=== PATIENT | male | born 1985 | race Asian ===

== ENCOUNTER 2018-10-29 02:59 | Inpatient (IN) | payer BC, OTHER ==
[~2018-10-29] VITALS: Ht 177.8 cm; Wt 78.0 kg
[2018-10-29] VITALS (17 sets, daily range): BP systolic 102–130; BP diastolic 52–80; PULSE 63–98; RESP 12–33; Ht 177.8 cm; Wt 78.0 kg
--- NOTE | 2018-10-29 04:56 | ERD ---
ER Documentation Chief Complaint Chief Complaint right lower abdominal pain x 3 hours HPI 33-year-old male, previously healthy, presents the emergency department, complaining of acute onset of epigastric pain approximately 20 hours prior to arrival. The pain is reported as dull, constant, 8/10 that during the last 5 hours has radiated to the right lower quadrant, associated with chills and nausea but no vomiting, no fever, no diarrhea or constipation. The patient took Tums for pain without improvement of the symptoms. Last p.o. >15h. No history of abdominal surgeries. ROS All systems reviewed and are negative except as per history of present illness. Allergies Allergies: Coded Allergies: No Known Drug Allergies (Verified Allergy, Unknown, 10/29/18) PMhx/Soc Medical and Surgical Hx: pt denies Medical Hx, pt denies Surgical Hx Hx Alcohol Use: No Hx Substance Use: No Hx Tobacco Use: No Smoking Status: Never smoker FmHx Family History: No diabetes, No coronary disease Physical Exam Vitals Vital Signs Date Temp Pulse Resp B/P (MAP) Pulse Ox O2 O2 Flow FiO2 Time Delivery Rate 10/29/18 98.2 85 18 141/89 99 03:11 (106) Physical Exam Patient alert, oriented, moderate distress due to pain. HEENT: Normocephalic, atraumatic. EYES: PERRLA, EOMI, Sclera and conjunctiva appear normal. EARS: Canals clear, tympanic membranes WNL. THROAT: Normal oropharynx. NECK: Supple, No lymphadenopathy. Full ROM without pain or tenderness. HEART: RRR, no rubs, murmurs, clicks or gallops. LUNGS: Clear to auscultation. ABDOMEN: Guarded, tender to palpation in the right lower quadrant, (+)McBurney sign. EXTREMITIES: No edema bilaterally. BACK: Full ROM, no deformity, normal back exam NEURO: Cranial nerves grossly intact, no motor or sensory deficit Result Diagram: 10/29/18 0508 10/29/18 0508 Results 24 hrs Laboratory Tests Test 10/29/18 05:08 10/29/18 05:09 White Blood Count 12.5 10^3/ul Red Blood Count 5.19 10^6/ul Hemoglobin 15.1 g/dl Hematocrit 46.3 % Mean Corpuscular Volume 89.2 fl Mean Corpuscular Hemoglobin 29.1 pg Mean Corpuscular Hemoglobin Concent 32.6 g/dl Red Cell Distribution Width 12.3 % Platelet Count 309 10^3/UL Mean Platelet Volume 8.8 fl Immature Granulocytes % 0.600 % Neutrophils % 82.9 % Lymphocytes % 9.1 % Monocytes % 5.6 % Eosinophils % 1.4 % Basophils % 0.4 % Nucleated Red Blood Cells % 0.0 /100WBC Immature Granulocytes # 0.070 10^3/ul Neutrophils # 10.4 10^3/ul Lymphocytes # 1.1 10^3/ul Monocytes # 0.7 10^3/ul Eosinophils # 0.2 10^3/ul Basophils # 0.1 10^3/ul Nucleated Red Blood Cells # 0.0 10^3/ul Sodium Level 141 mmol/L Potassium Level 4.9 mmol/L Chloride Level 102 mmol/L Carbon Dioxide Level 30 mmol/L Anion Gap 9 Blood Urea Nitrogen 13 mg/dl Creatinine 0.89 mg/dl Est Glomerular Filtrat Rate mL/min > 60 mL/min Glucose Level 105 mg/dl Calcium Level 10.6 mg/dl Total Bilirubin 0.7 mg/dl Direct Bilirubin 0.00 mg/dl Indirect Bilirubin 0.7 mg/dl Aspartate Amino Transf (AST/SGOT) 34 IU/L Alanine Aminotransferase (ALT/SGPT) 48 IU/L Alkaline Phosphatase 78 IU/L Total Protein 8.3 g/dl Albumin 5.0 g/dl Globulin 3.30 g/dl Albumin/Globulin Ratio 1.51 Lipase 43 U/L Urine Color STRAW Urine Clarity CLEAR Urine pH 7.0 Urine Specific [place] 1.004 Urine Ketones NEGATIVE mg/dL Urine Nitrite NEGATIVE mg/dL Urine Bilirubin NEGATIVE mg/dL Urine Urobilinogen NEGATIVE mg/dL Urine Leukocyte Esterase NEGATIVE Francia/ul Urine Hemoglobin NEGATIVE mg/dL Urine Glucose NEGATIVE mg/dL Urine Total Protein NEGATIVE mg/dl Current Medications Medications Dose Sig/Rory Start Time Status Last (Trade) Ordered Route PRN Stop Time Admin Dose Reason Admin Sodium 1,000 ml @ Q1H STAT 10/29/18 DC 10/29/18 Chloride 1,000 mls/hr IV 05:00 05:13 10/29/18 05:59 Morphine 2 mg ONCE STAT 10/29/18 DC 10/29/18 Sulfate IV 05:00 05:13 (morphine) 10/29/18 05:05 Ondansetron 4 mg ONCE STAT 10/29/18 DC 10/29/18 HCl (Zofran IV 05:00 05:13 Inj) 10/29/18 05:05 Famotidine 20 mg ONCE STAT 10/29/18 DC 10/29/18 (Pepcid Iv) IV 05:00 05:13 10/29/18 05:05 Procedures/MDM Vital signs stable. Differential diagnosis include but not limited to: UTI, colitis, gastroenteritis, kidney stones, irritable bowel syndrome, inflammatory bowel syndrome, malabsorption syndrome, cholelithiasis, food intolerance, medication side effect, pancreatitis, diverticulitis, bowel obstruction. Physical examination and clinical presentation consistent most likely with acute appendicitis. During the ED course the patient remained stable. Results and clinical impression discussed with the patient who agrees with management. The patient will be transfer to Dr. Pennington for further disposition. Instructions explained and given directly by me to the patient with acknowledgment and demonstrated understanding. Disclaimer: Inadvertent spelling and grammatical errors are likely due to EHR/dictation software use and do not reflect on the overall quality of patient care. Also, please note that the electronic time recorded on this note does not necessarily reflect the actual time of the patient encounter. Departure Diagnosis: Primary Impression: Acute appendicitis Condition: Stable VERITO SIMEON MD Oct 29, 2018 04:56
[2018-10-29] MEDS ORDERED: morphine 2 MG INJ IV STA (05:00)
[2018-10-29] MEDS ORDERED: SOD CHLORIDE 0.9% 1,000 ML IV STA (05:00)
[2018-10-29] MEDS ORDERED: ONDANSETRON 4 MG INJ IV STA (05:00)
[2018-10-29] MEDS ORDERED: FAMOTIDINE 20 MG INJ IV STA (05:00)
[2018-10-29] MEDS ORDERED: PIPER-TAZO 3.375 GM IV (PMX) 100 ML IVPB ONE (06:30)
[2018-10-29] MEDS ORDERED: ONDANSETRON 4 MG INJ IV PRN ×3 (07:30→21:30)
[2018-10-29] MEDS ORDERED: ACETAMINOPHEN 325 MG TAB PO PRN ×2 (07:30→12:00)
[2018-10-29] MEDS ORDERED: LORAZEPAM 2 MG INJ IV PRN (12:00)
[2018-10-29] MEDS ORDERED: NITROGLYCERIN (SL) 0.4 MG TAB SL PRN (12:00)
[2018-10-29] MEDS ORDERED: DOCUSATE SODIUM 100 MG CAP PO PRN (12:00)
[2018-10-29] MEDS ORDERED: NACL 0.9% 3 ML SYG IV SCH (12:00)
[2018-10-29] MEDS ORDERED: MAGNESIUM HYDROXIDE 30ML CUP PO PRN (12:00)
[2018-10-29] MEDS ORDERED: hydrALAzine 20 MG INJ IV PRN (12:00)
[2018-10-29] MEDS ORDERED: morphine 2 MG INJ IV PRN (12:00)
[2018-10-29] MEDS ORDERED: HYDROCODONE/APAP (5/325) TAB PO PRN (12:00)
[2018-10-29] MEDS ORDERED: ALBUTEROL/IPRATROPIUM (NEB) 3 ML AMP HHN PRN (12:00)
[2018-10-29] MEDS: SOD CHLORIDE 0.9% 1,000 ML IV SCH (12:36)
[2018-10-29] MEDS: PIPER-TAZO 3.375 GM IV (PMX) 100 ML IVPB SCH ×2 (12:36→18:13)
--- NOTE | 2018-10-29 12:43 | HP ---
DATE OF ADMISSION: 10/29/2018 IDENTIFICATION: This is a 33-year-old male. CHIEF COMPLAINT: Abdominal pain. HISTORY OF PRESENT ILLNESS: A 33-year-old male with no significant past medical history who has been having abdominal pain. The symptoms began yesterday. He noticed bloating type of pain. Never had this before. It started in the umbilical area about 7 to 8/10 in intensity and radiated to the right lower quadrant. He had some subjective had some chills, some mild nausea but no vomiting, no fevers , no diarrhea or constipation. He took some Tums to help relieve the symptoms, but he did not get an y relief. He decided to come to the ER. When he came in, he had a CT abdomen and pelvis performed t [place] that showed signs of acute appendicitis with a dilated, 15 mm appendix and appendicolith. No A superficial location in the right lower quadrant of the abdomen and pelvis immediately subadjacent to the right rectus musculature and fascia. There is also mild periappendiceal inflammation and a call was made out to the surgeon to come see the patient. The patient is presently n.p.o. PAST MEDICAL HISTORY: As stated above. ALLERGIES: NO DRUG ALLERGIES. MEDICATIONS AT HOME: None. PAST SURGICAL HISTORY: None. SOCIAL HISTORY: Negative for smoking or drinking, or IV drug abuse. PHYSICAL EXAMINATION: VITAL SIGNS: T-max 98.2, pulse 85, respirations 18, blood pressure 141/89, satting at 98% on room ai r. GENERAL: The patient is lying in bed in moderate distress but answering questions appropriately. HEENT: Pupils equal, round, reactive to light. Extraocular muscles intact. NECK: Supple, no thyromegaly. LUNGS: Clear to auscultation bilaterally. CARDIOVASCULAR: S1, S2 heard. No rubs or gallops. ABDOMEN: Some positive guarding noted. Tender to palpation right lower quadrant. Normal bowel soun ds. MUSCULOSKELETAL: No lower extremity edema bilaterally. NEUROLOGIC: No focal deficits. LABORATORIES: WBC is 12.5. The rest of the CBC is normal. The comprehensive metabolic panel is nor mal. Lipase is normal. UA is negative. IMAGING: CT abdomen and pelvis findings as mentioned. ASSESSMENT AND PLAN: A 33-year-old male coming in with abdominal pain, signs of acute appendicitis. 1. Abdominal pain secondary to acute appendicitis. Admit the patient, keep him n.p.o., give him IV fluids, check TSH, A1c, lipid panel. Most likely patient would benefit from laparoscopic appendectom y. We will discuss the case with surgery team regarding final instructions on that. Continue IV flu ids. Since there is leukocytosis. Will add low-dose antibiotics as well. 2. Deep venous thrombosis prophylaxis, heparin subcu. Dictated By: WEI STEWART/CRISTOFER Conf#: [id number] DID#: [id number] CC: ZOEY PICHARDO MD;*EndCC*
[2018-10-29] MEDS ORDERED: BUPIVACAINE 0.5%/EPI (SDV) 30 ML INJ ONE (14:36)
--- NOTE | 2018-10-29 19:14 | CONS ---
Assessment/Plan Assessment/Plan Assessment/Plan (Daily) Abdominal pain , consistent with acute appendicitis . No evidence of perforation Explained to patient diagnosis , approach to treatment , which will involve laparoscopic appendectomy , possible open and post op expectation Patient is willing to proceed . OR has been called Consultation Date/Type/Reason Admit Date/Time Oct 29, 2018 at 07:02 Date of Consultation: Oct 29, 2018 Type of Consult surgical consult Reason for Consultation abdominal pain Requesting Provider: WEI DAVENPORT Date/Time of Note DATE: 10/29/18 TIME: 19:08 Hx of Present Illness Poornima presented to the ER for worsening abdominal pain . Pain started y esterday and became progressively more intense . Denies similar symptoms to this in the past . Denies any significant past medical history Past Medical History Medications Current Medications IV Flush (NS 3 ml) 3 ml PER PROTOCOL IV ; Start 10/29/18 at 12:00 Ondansetron HCl (Zofran Inj) 4 mg Q6H PRN IV NAUSEA/VOMITING; Start 10/29/18 at 12:00 Acetaminophen (Tylenol Tab) 650 mg Q6H PRN PO .PAIN 1-3 OR TEMP; Start 10/29/18 at 12:00 Acetaminophen/ Hydrocodone Bitart ([place] (5/325)) 1 tab Q6H PRN PO .MOD PAIN 4- 6; Start 10/29/18 at 12:00 Morphine Sulfate (morphine) 2 mg Q4H PRN IV .SEVERE PAIN 7-10 Last administered on 10/29/18at 13:11; Admin Dose 2 MG; Start 10/29/18 at 12:00 Docusate Sodium (Colace) 100 mg Q12H PRN PO .CONSTIPATION; Start 10/29/18 at 12:00 Magnesium Hydroxide (Milk Of Mag) 30 ml DAILY PRN PO .CONSTIPATION; Start 10/29/18 at 12:00 Heparin Sodium (Porcine) (Heparin (5000 Units/1ml)) 5,000 unit Q12 SC ; Start 10/29/18 at 21:00 Lorazepam (Ativan) 0.5 mg Q6H PRN IV ANXIETY; Start 10/29/18 at 12:00 Sodium Chloride 1,000 ml @ 100 mls/hr Q10H IV Last administered on 10/29/18at 12:36; Admin Dose 100 MLS/HR; Start 10/29/18 at 12:00 Albuterol/ Ipratropium (Duoneb) 3 ml Q4H RESP THERAPY PRN HHN SHORTNESS OF BREATH; Start 10/29/18 at 12:00 Piperacillin Sod/ Tazobactam Sod 100 ml @ 200 mls/hr Q6 IVPB Last administered on 10/29/18at 18:13; Admin Dose 200 MLS/HR; Start 10/29/18 at 12:00 Hydralazine HCl (Apresoline) 10 mg Q6H PRN IV SBP GREATER THAN 180; Start 10/29/18 at 12:00 Nitroglycerin (Nitroglycerin (Sl Tab) 0.4 Mg) 1 tab Q5M PRN SL ANGINA; Start 10/29/18 at 12:00 Allergies: Coded Allergies: No Known Drug Allergies (Verified Allergy, Unknown, 10/29/18) Social History Smoking Status: Former smoker Exam/Review of Systems Exam Vitals Vital Signs Date Temp Pulse Resp B/P (MAP) Pulse Ox O2 O2 Flow FiO2 Time Delivery Rate 10/29/18 74 17 124/81 99 Room Air 08:29 (95) 10/29/18 97.8 07:00 Exam A & O x 3 Lungs clear Cor reg rate and rhythm , nl S1S2 , no murmurs , rubs Abdomen soft , moderate tenderness right lower quadrant at Mcburneys point Results Result Diagram: 10/29/18 0508 10/29/18 0508 Results 24hrs Laboratory Tests Test 10/29/18 05:08 10/29/18 05:09 10/29/18 12:00 White Blood Count 12.5 H Red Blood Count 5.19 Hemoglobin 15.1 Hematocrit 46.3 Mean Corpuscular Volume 89.2 Mean Corpuscular Hemoglobin 29.1 Mean Corpuscular Hemoglobin Concent 32.6 Red Cell Distribution Width 12.3 Platelet Count 309 Mean Platelet Volume 8.8 Immature Granulocytes % 0.600 H Neutrophils % 82.9 H Lymphocytes % 9.1 L Monocytes % 5.6 Eosinophils % 1.4 Basophils % 0.4 Nucleated Red Blood Cells % 0.0 Immature Granulocytes # 0.070 H Neutrophils # 10.4 H Lymphocytes # 1.1 Monocytes # 0.7 Eosinophils # 0.2 Basophils # 0.1 Nucleated Red Blood Cells # 0.0 Sodium Level 141 Potassium Level 4.9 Chloride Level 102 Carbon Dioxide Level 30 Anion Gap 9 Blood Urea Nitrogen 13 Creatinine 0.89 Est Glomerular Filtrat Rate mL/min > 60 Glucose Level 105 Calcium Level 10.6 H Total Bilirubin 0.7 Direct Bilirubin 0.00 Indirect Bilirubin 0.7 Aspartate Amino Transf (AST/SGOT) 34 Alanine Aminotransferase (ALT/SGPT) 48 Alkaline Phosphatase 78 Total Protein 8.3 H Albumin 5.0 H Globulin 3.30 H Albumin/Globulin Ratio 1.51 Lipase 43 Urine Color STRAW Urine Clarity CLEAR Urine pH 7.0 Urine Specific [place] 1.004 Urine Ketones NEGATIVE Urine Nitrite NEGATIVE Urine Bilirubin NEGATIVE Urine Urobilinogen NEGATIVE Urine Leukocyte Esterase NEGATIVE Urine Hemoglobin NEGATIVE Urine Glucose NEGATIVE Urine Total Protein NEGATIVE Prothrombin Time 12.5 Prothrombin Time Ratio 1.0 INR International Normalized Ratio 0.92 Activated Partial Thromboplast Time 29.7 Free Thyroxine 1.01 Medications Medication Current Medications IV Flush (NS 3 ml) 3 ml PER PROTOCOL IV ; Start 10/29/18 at 12:00 Ondansetron HCl (Zofran Inj) 4 mg Q6H PRN IV NAUSEA/VOMITING; Start 10/29/18 at 12:00 Acetaminophen (Tylenol Tab) 650 mg Q6H PRN PO .PAIN 1-3 OR TEMP; Start 10/29/18 at 12:00 Acetaminophen/ Hydrocodone Bitart ([place] (5/325)) 1 tab Q6H PRN PO .MOD PAIN 4- 6; Start 10/29/18 at 12:00 Morphine Sulfate (morphine) 2 mg Q4H PRN IV .SEVERE PAIN 7-10 Last administered on 10/29/18at 13:11; Admin Dose 2 MG; Start 10/29/18 at 12:00 Docusate Sodium (Colace) 100 mg Q12H PRN PO .CONSTIPATION; Start 10/29/18 at 12:00 Magnesium Hydroxide (Milk Of Mag) 30 ml DAILY PRN PO .CONSTIPATION; Start 10/29/18 at 12:00 Heparin Sodium (Porcine) (Heparin (5000 Units/1ml)) 5,000 unit Q12 SC ; Start 10/29/18 at 21:00 Lorazepam (Ativan) 0.5 mg Q6H PRN IV ANXIETY; Start 10/29/18 at 12:00 Sodium Chloride 1,000 ml @ 100 mls/hr Q10H IV Last administered on 10/29/18at 12:36; Admin Dose 100 MLS/HR; Start 10/29/18 at 12:00 Albuterol/ Ipratropium (Duoneb) 3 ml Q4H RESP THERAPY PRN HHN SHORTNESS OF BREATH; Start 10/29/18 at 12:00 Piperacillin Sod/ Tazobactam Sod 100 ml @ 200 mls/hr Q6 IVPB Last administered on 10/29/18at 18:13; Admin Dose 200 MLS/HR; Start 10/29/18 at 12:00 Hydralazine HCl (Apresoline) 10 mg Q6H PRN IV SBP GREATER THAN 180; Start 10/29/18 at 12:00 Nitroglycerin (Nitroglycerin (Sl Tab) 0.4 Mg) 1 tab Q5M PRN SL ANGINA; Start 10/29/18 at 12:00 ZOEY ROWAN MD Oct 29, 2018 19:14
[2018-10-29] MEDS ORDERED: ROCURONIUM 50 MG INJ ONE (19:49)
[2018-10-29] MEDS ORDERED: PROPOFOL 20 ML ONE (19:49)
[2018-10-29] MEDS ORDERED: MIDAZOLAM 1 MG/ML 2 ML INJ ONE (19:49)
[2018-10-29] MEDS ORDERED: ROPIVACAINE 0.5 % 30 ML VIAL ONE (19:49)
[2018-10-29] MEDS ORDERED: FENTAnyl 50 MCG/ML VIAL ONE (19:49)
[2018-10-29] MEDS: HEPARIN 5,000 UNIT/1 ML VIAL SC SCH (21:00)
[2018-10-29] MEDS ORDERED: METOCLOPRAMIDE 10 MG INJ ONE (21:17)
[2018-10-29] MEDS ORDERED: ONDANSETRON 4 MG INJ ONE (21:17)
[2018-10-29] MEDS ORDERED: KETOROLAC 30 MG INJ ONE (21:17)
[2018-10-29] MEDS ORDERED: CEFAZOLIN 1 GM INJ ONE (21:17)
[2018-10-29] MEDS ORDERED: DEXAMETHASONE 4 MG/ML 5 ML INJ ONE (21:17)
--- NOTE | 2018-10-29 21:18 | PREAC ---
Date/Time of Note Date/Time of Note DATE: 10/29/18 TIME: 21:12 Anesthesia Eval and Record Evaluation Time Pre-Procedure Interview DATE: 10/29/18 TIME: 20:36 Age 33 Sex male NPO: 8 hrs Preoperative diagnosis Acute Appendicitis Planned procedure Laparoscopic Appendectomy Past Medical History Past Medical History: None Surgery & Anesthesia Issues No known issue Meds Anticoagulation: No Beta Belinda within 24 hr: No Reason Beta Belinda not given: Pt. not on B-Belinda Current Medications IV Flush (NS 3 ml) 3 ml PER PROTOCOL IV ; Start 10/29/18 at 12:00 Ondansetron HCl (Zofran Inj) 4 mg Q6H PRN IV NAUSEA/VOMITING; Start 10/29/18 at 12:00 Acetaminophen (Tylenol Tab) 650 mg Q6H PRN PO .PAIN 1-3 OR TEMP; Start 10/29/18 at 12:00 Acetaminophen/ Hydrocodone Bitart ([place] (5/325)) 1 tab Q6H PRN PO .MOD PAIN 4- 6; Start 10/29/18 at 12:00 Morphine Sulfate (morphine) 2 mg Q4H PRN IV .SEVERE PAIN 7-10 Last administered on 10/29/18at 13:11; Admin Dose 2 MG; Start 10/29/18 at 12:00 Docusate Sodium (Colace) 100 mg Q12H PRN PO .CONSTIPATION; Start 10/29/18 at 12:00 Magnesium Hydroxide (Milk Of Mag) 30 ml DAILY PRN PO .CONSTIPATION; Start 10/29/18 at 12:00 Heparin Sodium (Porcine) (Heparin (5000 Units/1ml)) 5,000 unit Q12 SC ; Start 10/29/18 at 21:00 Lorazepam (Ativan) 0.5 mg Q6H PRN IV ANXIETY; Start 10/29/18 at 12:00 Sodium Chloride 1,000 ml @ 100 mls/hr Q10H IV Last administered on 10/29/18at 12:36; Admin Dose 100 MLS/HR; Start 10/29/18 at 12:00 Albuterol/ Ipratropium (Duoneb) 3 ml Q4H RESP THERAPY PRN HHN SHORTNESS OF BREATH; Start 10/29/18 at 12:00 Piperacillin Sod/ Tazobactam Sod 100 ml @ 200 mls/hr Q6 IVPB Last administered on 10/29/18at 18:13; Admin Dose 200 MLS/HR; Start 10/29/18 at 12:00 Hydralazine HCl (Apresoline) 10 mg Q6H PRN IV SBP GREATER THAN 180; Start 10/29/18 at 12:00 Nitroglycerin (Nitroglycerin (Sl Tab) 0.4 Mg) 1 tab Q5M PRN SL ANGINA; Start 10/29/18 at 12:00 Meds reviewed: Yes Allergies Coded Allergies: No Known Drug Allergies (Verified Allergy, Unknown, 10/29/18) Allergies Reviewed: Yes Labs/Studies Labs Reviewed: Reviewed by anesthesiologist Result Diagram: 10/29/18 0508 10/29/18 0508 Laboratory Tests 10/29/18 05:08 test: N/A Studies: ECG (n/a), CXR (n/a) Pre-procedure Exam Last vitals Vital Signs Date Temp Pulse Resp B/P (MAP) Pulse Ox O2 O2 Flow FiO2 Time Delivery Rate 10/29/18 74 17 124/81 99 Room Air 08:29 (95) 10/29/18 97.8 07:00 Airway: Adequate mouth opening, Adequate thyromental dist Mallampati: Mallampati II Teeth: Normal Lung: Normal Heart: Normal ASA Physical Status ASA physical status: 2 Emergency: E Planned Anesthetic General/MAC: ETT Nerve block: TAP (bilateral) Planned Pain Management Single shot nerve block, Parenteral pain med Pre-operative Attestations Prior to commencing anesthesia and surgery, the patient was re-evaluated, there was verification of: *The patient's identity *The results of appropriate recent lab work and preoperative vital signs *The above evaluation not changing prior to induction *Anesthetic plan, risk benefits, alternative and complications discussed with patient/family; questions answered; patient/family understands, accepts and wishes to proceed. SHELTON MATHIAS MD Oct 29, 2018 21:18
[2018-10-29] MEDS ORDERED: FENTAnyl 50 MCG/ML VIAL IV PRN ×3 (21:30)
[2018-10-29] MEDS ORDERED: DIPHENHYDRAMINE 50 MG INJ IV PRN (21:30)
[2018-10-29] MEDS ORDERED: HYDROmorphONE 1 MG/5 ML IV SYRINGE IV PRN ×3 (21:30)
[2018-10-29] MEDS ORDERED: EPHEDrine SULFATE 50 MG/5 ML SYG IV PRN (21:30)
[2018-10-29] MEDS ORDERED: LABETALOL HCL 20MG INJ IV PRN (21:30)
[2018-10-29] MEDS ORDERED: OXYCODONE/ACETAMINOPHEN (5/325) TAB PO PRN (21:30)
[2018-10-29] MEDS ORDERED: METOCLOPRAMIDE 10 MG INJ IV PRN (21:30)
[2018-10-29] MEDS ORDERED: MEPERIDINE 25 MG INJ IV PRN (21:30)
[2018-10-29] MEDS ORDERED: NEOSTIGMINE 10 MG INJ ONE (22:21)
[2018-10-29] MEDS ORDERED: GLYCOPYRROLATE 0.4 MG INJ ONE (22:21)
--- NOTE | 2018-10-29 22:38 | OPR ---
Date/Time of Note Date/Time of Note DATE: 10/29/18 TIME: 22:36 Operative Report Free Text/Dictation Operative report Procedure Date: Oct 29, 2018 Preoperative Diagnosis Acute appendicitis Postoperative Diagnosis Severe acute appendicitis Operation/Procedure Performed Laparoscopic appendectomy and colorrhaphy, Surgeon Zoey Cook MD see signature line Surgical Appliance Fitter On Anesthesia Type: general Anesthesiologist: SHELTON MATHIAS MD Estimated Blood Loss: 0 - 10 ml's Transfusion none Specimen Appendix Grafts/Implants none Tubes/Drains None Complications none Pt Condition Post Procedure: stable Disposition: PACU Indications Patient presented to the emergency room signs and symptoms of abdominal pain consistent with acute appendicitis CAT scan confirmed inflammatory process appendicitis surgical consultation was requested I saw the patient I felt that he did indeed clinically seem to have appendicitis I recommended that he undergo option of appendectomy details the procedure was discussed and he agreed to proceed. Procedure Description Patient brought to the operating placed supine position. General anesthesia was administered administered with endotracheal intubation and the patient prepped d raped in sterile fashion orogastric tube inserted by anesthesia. A tap block was performed by anesthesia. A timeout was completed. A Veress needle was placed in the left upper quadrant Nieto's point insufflation delivered to maintain pneumoperitoneum at 15 mmHg throughout the procedure. A small stab incision was made just above the umbilicus and a 5 mm trocar was inserted under direct visualization with a 30 degree femoral laparoscope. The Veress needle was inspected there is no injury around the area or bleeding and the version was removed. 2 additional trochars, a 5 mm in for umbilical and a 12 mm suprapubic port were inserted under direct visualization. Suction. A window was made in the mesoappendix was quite fatty after this was scored with a monopolar cautery hook. A ROULA vascular load [place] was then used to come across the mesoappendix this showed that there was still additional base of the appendix and application of the 35 mm [place] vascular was applied and necessitated a second application along the base of the septum. The staple line however looks slightly by the junction of the 2 staple lines, and so I elected to do a reinforcement with intracorporeal suturing. A running 3-0 Vicryl and interrupted 3-0 silk was used along the entire length of the staple line to imbricate the staple line. There was no bleeding. The appendix and then was placed in the specimen bag and brought through the 12 mm port site after it was enlarged and slightly. Final inspection showed good hemostasis. Gauze 4 x 4 which was used to block some of this hemolytic fluid was withdrawn. The pneumoperitoneum was allowed to escape the trochars were removed. The fascial incision was closed with an 0 Ethibond suture and then in layers with 4-0 Monocryl and interrupted 5-0 Prolene. Dermabond for skin dressing. Patient was explained the operative bed recovery in stable condition. Sponge and needle count correct x2. ZOEY COOK MD Oct 29, 2018 22:38
[2018-10-29] MEDS ORDERED: NALOXONE (0.4 MG/ML) INJ ONE (22:45)
[2018-10-30] VITALS (52 sets, daily range): BP systolic 76–131; BP diastolic 38–86; PULSE 80–114; RESP 17–29
[2018-10-30] MEDS ORDERED: D5W-0.45 NACL + KCL 20 MEQ 1,000 ML IV SCH
[2018-10-30] MEDS ORDERED: ACETAMINOPHEN 325 MG TAB PO PRN
[2018-10-30] MEDS ORDERED: ONDANSETRON 4 MG INJ IV PRN
[2018-10-30] MEDS ORDERED: KETOROLAC 30 MG INJ IV PRN
[2018-10-30] MEDS ORDERED: IPRATROPIUM (NEB) 0.5 MG/2.5 ML AMP HHN PRN (00:30)
[2018-10-30] MEDS ORDERED: ALBUTEROL 0.083% (NEB) 2.5 MG/3 ML AMP HHN PRN (00:30)
[2018-10-30] MEDS ORDERED: FUROSEMIDE 20 MG INJ IV ONE ×3 (00:30→18:00)
[2018-10-30] MEDS: SOD CHLORIDE 0.9% 1,000 ML IV SCH (02:00)
[2018-10-30] MEDS: PIPER-TAZO 3.375 GM IV (PMX) 100 ML IVPB SCH ×4 (02:36→18:23)
[2018-10-30] MEDS: HYDROmorphONE 0.5 MG/0.5 ML SYG IV PRN ×4 (04:17→22:14)
[2018-10-30] MEDS ORDERED: MAGNESIUM SULFATE 2 GM/50 ML 50 ML IVPB ONE (07:00)
[2018-10-30] MEDS: FAMOTIDINE 20 MG INJ IV SCH ×2 (09:24→21:02)
[2018-10-30] MEDS: HEPARIN 5,000 UNIT/1 ML VIAL SC SCH ×2 (09:32→21:00)
--- NOTE | 2018-10-30 09:44 | PN ---
Date/Time of Note Date/Time of Note DATE: 10/30/18 TIME: 09:34 Assessment/Plan VTE Prophylaxis Risk score (from Ns)>0 risk: 0 SCD applied (from Ns): No SCD contraindicated: other Pharmacological prophylaxis: heparin Lines/Catheters IV Catheter Type (from [facility]): Peripheral IV Urinary Cath still in place: No Assessment/Plan Hospital Course S: Patient had appendectomy performed yesterday, but had some postop hypoxia and had to be transferred to the intensive care unit last night. O: VS - see below PHYSICAL EXAMINATION: GENERAL: lying in bed, answering questions appropriately. HEENT: Pupils equal, round, reactive to light. Extraocular muscles intact. NECK: Supple, no thyromegaly. LUNGS: Clear to auscultation bilaterally. CARDIOVASCULAR: S1, S2 heard. No rubs or gallops. ABDOMEN: Some positive guarding noted. less tender to palpation right lower quadrant. Normal bowel sounds. MUSCULOSKELETAL: No lower extremity edema bilaterally. NEUROLOGIC: No focal deficits. ASSESSMENT AND PLAN: 33-year-old male coming in with abdominal pain, signs of acute appendicitis, status post appendectomy postop day 1. 1. Abdominal pain- secondary to acute appendicitis-again postop day #1 appendectomy. Patient with postop hypoxia, subsequently sent to ICU last night but improving now. -Monitor, continue diet order per surgery recommendations, pain control, IV fluids -Follow-up post surgery recommendations from surgery team, for now continue IV antibiotics. 2. Deep venous thrombosis prophylaxis, heparin subcu. Critical care time spent on patient care today equals 45 minutes. Result Diagram: 10/30/18 0444 10/30/18 0444 Results 24hrs Laboratory Tests Test 10/29/18 12:00 10/30/18 04:44 Prothrombin Time 12.5 Prothrombin Time Ratio 1.0 INR International Normalized Ratio 0.92 Activated Partial Thromboplast Time 29.7 Free Thyroxine 1.01 White Blood Count 13.0 H Red Blood Count 4.75 Hemoglobin 14.1 Hematocrit 42.7 Mean Corpuscular Volume 89.9 Mean Corpuscular Hemoglobin 29.7 Mean Corpuscular Hemoglobin Concent 33.0 Red Cell Distribution Width 12.5 Platelet Count 278 Mean Platelet Volume 9.1 Immature Granulocytes % 0.500 H Neutrophils % 92.0 H Lymphocytes % 3.5 L Monocytes % 3.9 Eosinophils % 0.0 Basophils % 0.1 Nucleated Red Blood Cells % 0.0 Immature Granulocytes # 0.070 H Neutrophils # 12.0 H Lymphocytes # 0.5 L Monocytes # 0.5 Eosinophils # 0.0 Basophils # 0.0 Nucleated Red Blood Cells # 0.0 Sodium Level 137 Potassium Level 3.8 Chloride Level 102 Carbon Dioxide Level 27 Anion Gap 8 Blood Urea Nitrogen 16 Creatinine 1.06 Est Glomerular Filtrat Rate mL/min > 60 Glucose Level 145 # Hemoglobin A1c 5.3 Calcium Level 8.9 Phosphorus Level 4.2 Magnesium Level 1.6 L Triglycerides Level 33 Cholesterol Level 182 LDL Cholesterol, Calculated 113 HDL Cholesterol 62 Cholesterol/HDL Ratio 2.9 Thyroid Stimulating Hormone (TSH) 0.519 Exam/Review of Systems Exam Vitals Vital Signs Date Temp Pulse Resp B/P (MAP) Pulse Ox O2 O2 Flow FiO2 Time Delivery Rate 10/30/18 Nasal 2.0 08:00 Cannula 10/30/18 97.8 80 19 97/59 (72) 100 08:00 Intake and Output 10/29/18 10/29/18 10/30/18 1414:59 22:59 06:59 IntakeIntake Total 100 ml 2050 ml 550 ml OutputOutput Total 10 ml BalanceBalance 100 ml 2040 ml 550 ml Results Results 24hrs Laboratory Tests Test 10/29/18 12:00 10/30/18 04:44 Prothrombin Time 12.5 Prothrombin Time Ratio 1.0 INR International Normalized Ratio 0.92 Activated Partial Thromboplast Time 29.7 Free Thyroxine 1.01 White Blood Count 13.0 H Red Blood Count 4.75 Hemoglobin 14.1 Hematocrit 42.7 Mean Corpuscular Volume 89.9 Mean Corpuscular Hemoglobin 29.7 Mean Corpuscular Hemoglobin Concent 33.0 Red Cell Distribution Width 12.5 Platelet Count 278 Mean Platelet Volume 9.1 Immature Granulocytes % 0.500 H Neutrophils % 92.0 H Lymphocytes % 3.5 L Monocytes % 3.9 Eosinophils % 0.0 Basophils % 0.1 Nucleated Red Blood Cells % 0.0 Immature Granulocytes # 0.070 H Neutrophils # 12.0 H Lymphocytes # 0.5 L Monocytes # 0.5 Eosinophils # 0.0 Basophils # 0.0 Nucleated Red Blood Cells # 0.0 Sodium Level 137 Potassium Level 3.8 Chloride Level 102 Carbon Dioxide Level 27 Anion Gap 8 Blood Urea Nitrogen 16 Creatinine 1.06 Est Glomerular Filtrat Rate mL/min > 60 Glucose Level 145 # Hemoglobin A1c 5.3 Calcium Level 8.9 Phosphorus Level 4.2 Magnesium Level 1.6 L Triglycerides Level 33 Cholesterol Level 182 LDL Cholesterol, Calculated 113 HDL Cholesterol 62 Cholesterol/HDL Ratio 2.9 Thyroid Stimulating Hormone (TSH) 0.519 Medications Medication Current Medications IV Flush (NS 3 ml) 3 ml PER PROTOCOL IV ; Start 10/29/18 at 12:00 Acetaminophen (Tylenol Tab) 650 mg Q6H PRN PO .PAIN 1-3 OR TEMP; Start 10/29/18 at 12:00 Acetaminophen/ Hydrocodone Bitart ([place] (5/325)) 1 tab Q6H PRN PO .MOD PAIN 4- 6; Start 10/29/18 at 12:00 Morphine Sulfate (morphine) 2 mg Q4H PRN IV .SEVERE PAIN 7-10 Last administered on 10/29/18at 13:11; Admin Dose 2 MG; Start 10/29/18 at 12:00 Docusate Sodium (Colace) 100 mg Q12H PRN PO .CONSTIPATION; Start 10/29/18 at 12:00 Magnesium Hydroxide (Milk Of Mag) 30 ml DAILY PRN PO .CONSTIPATION; Start 10/29/18 at 12:00 Heparin Sodium (Porcine) (Heparin (5000 Units/1ml)) 5,000 unit Q12 SC Last administered on 10/30/18at 09:32; Admin Dose 5,000 UNIT; Start 10/29/18 at 21:00 Lorazepam (Ativan) 0.5 mg Q6H PRN IV ANXIETY; Start 10/29/18 at 12:00 Sodium Chloride 1,000 ml @ 100 mls/hr Q10H IV Last administered on 10/29/18at 12:36; Admin Dose 100 MLS/HR; Start 10/29/18 at 12:00 Albuterol/ Ipratropium (Duoneb) 3 ml Q4H RESP THERAPY PRN HHN SHORTNESS OF BREATH; Start 10/29/18 at 12:00 Piperacillin Sod/ Tazobactam Sod 100 ml @ 200 mls/hr Q6 IVPB Last administered on 10/30/18at 06:09; Admin Dose 200 MLS/HR; Start 10/29/18 at 12:00 Hydralazine HCl (Apresoline) 10 mg Q6H PRN IV SBP GREATER THAN 180; Start 10/29/18 at 12:00 Nitroglycerin (Nitroglycerin (Sl Tab) 0.4 Mg) 1 tab Q5M PRN SL ANGINA; Start 10/29/18 at 12:00 Ondansetron HCl (Zofran Inj) 4 mg Q6H PRN IV NAUSEA AND/OR VOMITING; Start 10/30/18 at 00:00 Acetaminophen (Tylenol Tab) 650 mg Q6H PRN PO PAIN LEVEL 1-3 OR FEVER; Start 10/30/18 at 00:00 Ketorolac Tromethamine (Toradol) 30 mg Q6H PRN IV PAIN; Start 10/30/18 at 00:00; Stop 11/02/18 at 23:59 Hydromorphone HCl (Dilaudid) 0.5 mg Q4H PRN IV PAIN LEVEL 8-10 Last administered on 10/30/18at 04:17; Admin Dose 0.5 MG; Start 10/30/18 at 00:00 Potassium Chloride/Dextrose/ Sod Cl 1,000 ml @ 100 mls/hr Q10H IV Last administered on 10/30/18at 02:37; Admin Dose 100 MLS/HR; Start 10/30/18 at 00:00 Famotidine (Pepcid Iv) 20 mg Q12 IV Last administered on 10/30/18at 09:24; Admin Dose 20 MG; Start 10/30/18 at 09:00 WEI DAVENPORT Oct 30, 2018 09:44
--- NOTE | 2018-10-30 14:41 | PAC ---
Date/Time of Note Date/Time of Note DATE: 10/30/18 TIME: 14:35 Post-Anesthesia Notes Post-Anesthesia Note Last documented vital signs Vital Signs Date Temp Pulse Resp B/P (MAP) Pulse Ox O2 O2 Flow FiO2 Time Delivery Rate 10/30/18 98.5 98 20 119/59 90 Nasal 14:25 (79) Cannula 10/30/18 2.0 13:59 Activity: WNL Respiratory function: Other (Developed post op upper airway obstruction which was assisted by oral airway and nasal airways, his saturation was dropping to 87% withour O2 mask, ) Cardiovascular function: WNL Mental status: Baseline Pain reasonably controlled: Yes Hydration appropriate: Yes Nausea/Vomiting absent: Yes Comments Continued supportive care, CXR done and breathing treatment was administered post op. chest auscultation cleared bilaterally with scattered Ronchi which cleared with cough no crepitation or wheezing noted. Patient had no past medical history of any respiratory problems. no history of smoking. Due to post op hypoxemia the hospitalist oncall was contacted to follow up on him and patient was admitted to Tele and or ICU for over night observation. Patient was otherwise stable. no respiratory distress. initially post op 0.4 mg Narcan was given since patient was sleepy and obstructing upper airway initially. Consequently 10 mg of lasix was given considering the potential negative pressure pulmonary edema for the possible cause of post op hypoxemia. SHELTON MATHIAS MD Oct 30, 2018 14:41
[2018-10-30] MEDS ORDERED: DEXAMETHASONE 10 MG/ML 1 ML INJ IV ONE (15:00)
[2018-10-30] MEDS: ALBUTEROL/IPRATROPIUM (NEB) 3 ML AMP HHN SCH ×2 (15:50→21:00)
[2018-10-31] VITALS (12 sets, daily range): BP systolic 100–144; BP diastolic 63–79; PULSE 68–104; RESP 18–22
[2018-10-31] MEDS: PIPER-TAZO 3.375 GM IV (PMX) 100 ML IVPB SCH ×4 (00:34→18:30)
[2018-10-31] MEDS: ALBUTEROL/IPRATROPIUM (NEB) 3 ML AMP HHN SCH ×5 (00:42→21:00)
[2018-10-31] MEDS: HYDROmorphONE 0.5 MG/0.5 ML SYG IV PRN ×3 (07:00→22:35)
[2018-10-31] MEDS: FAMOTIDINE 20 MG INJ IV SCH ×2 (09:06→21:18)
[2018-10-31] MEDS: HEPARIN 5,000 UNIT/1 ML VIAL SC SCH ×2 (09:26→21:53)
--- NOTE | 2018-10-31 10:34 | PN ---
Date/Time of Note Date/Time of Note DATE: 10/31/18 TIME: 10:32 Assessment/Plan VTE Prophylaxis Risk score (from Ns)>0 risk: 4 SCD applied (from Ns): No SCD contraindicated: other Pharmacological prophylaxis: heparin Lines/Catheters IV Catheter Type (from [facility]): Peripheral IV Urinary Cath still in place: No Assessment/Plan Hospital Course S: Patient out of the ICU now, still requiring 3-4 L of nasal cannula supplementation as he still desats when oxygen is taken off. Still on clear liquid diet, tolerating, and per nursing staff able to ambulate without ass istance. O: VS - see below PHYSICAL EXAMINATION: GENERAL: lying in bed, answering questions appropriately. HEENT: Pupils equal, round, reactive to light. Extraocular muscles intact. NECK: Supple, no thyromegaly. LUNGS: Clear to auscultation bilaterally. CARDIOVASCULAR: S1, S2 heard. No rubs or gallops. ABDOMEN: Some positive guarding noted. less tender to palpation right lower quadrant. Normal bowel sounds. MUSCULOSKELETAL: No lower extremity edema bilaterally. NEUROLOGIC: No focal deficits. ASSESSMENT AND PLAN: 33-year-old male coming in with abdominal pain, signs of acute appendicitis, status post appendectomy postop day # 2. 1. Abdominal pain- secondary to acute appendicitis-again postop day # 2 appendectomy. Patient with postop hypoxia which paradoxically is still present, slowly improving. Chest x-ray yesterday did show signs of pulmonary vascular congestion versus infection. -Monitor, continue diet order per surgery recommendations, pain control, IV fluids -Try to wean down oxygen requirements, and will recheck chest x-ray in the morning -We will give IV Lasix 20 mg x1 today given most recent chest x-ray findings -Follow-up post surgery recommendations from surgery team, including diet changes, and for now continue IV antibiotics. 2. Deep venous thrombosis prophylaxis, heparin subcu. Result Diagram: 10/31/18 0458 10/31/18 0458 Results 24hrs Laboratory Tests Test 10/31/18 04:58 White Blood Count 9.8 # Red Blood Count 4.28 L Hemoglobin 12.7 L Hematocrit 39.0 L Mean Corpuscular Volume 91.1 Mean Corpuscular Hemoglobin 29.7 Mean Corpuscular Hemoglobin Concent 32.6 Red Cell Distribution Width 12.9 Platelet Count 289 Mean Platelet Volume 9.5 Immature Granulocytes % 0.300 Neutrophils % 76.7 Lymphocytes % 16.2 Monocytes % 6.3 Eosinophils % 0.2 Basophils % 0.3 Nucleated Red Blood Cells % 0.0 Immature Granulocytes # 0.030 Neutrophils # 7.5 Lymphocytes # 1.6 Monocytes # 0.6 Eosinophils # 0.0 Basophils # 0.0 Nucleated Red Blood Cells # 0.0 Sodium Level 142 Potassium Level 4.1 Chloride Level 104 Carbon Dioxide Level 31 Anion Gap 7 Blood Urea Nitrogen 15 Creatinine 0.98 Est Glomerular Filtrat Rate mL/min > 60 Glucose Level 92 # Calcium Level 9.2 Exam/Review of Systems Exam Vitals Vital Signs Date Temp Pulse Resp B/P (MAP) Pulse Ox O2 O2 Flow FiO2 Time Delivery Rate 10/31/18 Nasal 4.0 08:21 Cannula 10/31/18 82 08:10 10/31/18 96.5 22 116/75 96 08:02 (89) Intake and Output 10/30/18 10/30/18 10/31/18 1515:00 23:00 07:00 IntakeIntake Total 510 ml 460 ml 920 ml BalanceBalance 510 ml 460 ml 920 ml Results Results 24hrs Laboratory Tests Test 10/31/18 04:58 White Blood Count 9.8 # Red Blood Count 4.28 L Hemoglobin 12.7 L Hematocrit 39.0 L Mean Corpuscular Volume 91.1 Mean Corpuscular Hemoglobin 29.7 Mean Corpuscular Hemoglobin Concent 32.6 Red Cell Distribution Width 12.9 Platelet Count 289 Mean Platelet Volume 9.5 Immature Granulocytes % 0.300 Neutrophils % 76.7 Lymphocytes % 16.2 Monocytes % 6.3 Eosinophils % 0.2 Basophils % 0.3 Nucleated Red Blood Cells % 0.0 Immature Granulocytes # 0.030 Neutrophils # 7.5 Lymphocytes # 1.6 Monocytes # 0.6 Eosinophils # 0.0 Basophils # 0.0 Nucleated Red Blood Cells # 0.0 Sodium Level 142 Potassium Level 4.1 Chloride Level 104 Carbon Dioxide Level 31 Anion Gap 7 Blood Urea Nitrogen 15 Creatinine 0.98 Est Glomerular Filtrat Rate mL/min > 60 Glucose Level 92 # Calcium Level 9.2 Medications Medication Current Medications IV Flush (NS 3 ml) 3 ml PER PROTOCOL IV ; Start 10/29/18 at 12:00 Acetaminophen/ Hydrocodone Bitart ([place] (5/325)) 1 tab Q6H PRN PO .MOD PAIN 4- 6; Start 10/29/18 at 12:00 Morphine Sulfate (morphine) 2 mg Q4H PRN IV .SEVERE PAIN 7-10 Last administered on 10/29/18at 13:11; Admin Dose 2 MG; Start 10/29/18 at 12:00 Docusate Sodium (Colace) 100 mg Q12H PRN PO .CONSTIPATION; Start 10/29/18 at 12:00 Magnesium Hydroxide (Milk Of Mag) 30 ml DAILY PRN PO .CONSTIPATION; Start 10/29/18 at 12:00 Heparin Sodium (Porcine) (Heparin (5000 Units/1ml)) 5,000 unit Q12 SC Last administered on 10/31/18at 09:26; Admin Dose 5,000 UNIT; Start 10/29/18 at 21:00 Lorazepam (Ativan) 0.5 mg Q6H PRN IV ANXIETY; Start 10/29/18 at 12:00 Albuterol/ Ipratropium (Duoneb) 3 ml Q4H RESP THERAPY PRN HHN SHORTNESS OF BREATH; Start 10/29/18 at 12:00 Piperacillin Sod/ Tazobactam Sod 100 ml @ 200 mls/hr Q6 IVPB Last administered on 10/31/18at 05:07; Admin Dose 200 MLS/HR; Start 10/29/18 at 12:00 Hydralazine HCl (Apresoline) 10 mg Q6H PRN IV SBP GREATER THAN 180; Start 10/29/18 at 12:00 Nitroglycerin (Nitroglycerin (Sl Tab) 0.4 Mg) 1 tab Q5M PRN SL ANGINA; Start 10/29/18 at 12:00 Ondansetron HCl (Zofran Inj) 4 mg Q6H PRN IV NAUSEA AND/OR VOMITING; Start 10/30/18 at 00:00 Acetaminophen (Tylenol Tab) 650 mg Q6H PRN PO PAIN LEVEL 1-3 OR FEVER; Start 10/30/18 at 00:00 Ketorolac Tromethamine (Toradol) 30 mg Q6H PRN IV PAIN Last administered on 10/31/18at 09:06; Admin Dose 30 MG; Start 10/30/18 at 00:00; Stop 11/02/18 at 23:59 Hydromorphone HCl (Dilaudid) 0.5 mg Q4H PRN IV PAIN LEVEL 8-10 Last administered on 10/31/18at 07:00; Admin Dose 0.5 MG; Start 10/30/18 at 00:00 Famotidine (Pepcid Iv) 20 mg Q12 IV Last administered on 10/31/18at 09:06; Admin Dose 20 MG; Start 10/30/18 at 09:00 Albuterol/ Ipratropium (Duoneb) 3 ml Q4H RESP THERAPY HHN Last administered on 10/30/18at 15:50; Admin Dose 3 ML; Start 10/30/18 at 17:00 WEI DAVENPORT Oct 31, 2018 10:34
[2018-10-31] MEDS ORDERED: FUROSEMIDE 20 MG INJ IV ONE (11:00)
--- NOTE | 2018-10-31 16:55 | OPPN ---
Date/Time of Note Date/Time of Note DATE: 10/31/18 TIME: 16:53 Anesthesia Follow up Anesthesia Follow up Last documented vital signs Vital Signs Date Temp Pulse Resp B/P (MAP) Pulse Ox O2 O2 Flow FiO2 Time Delivery Rate 10/31/18 86 16:15 10/31/18 97.6 20 122/68 96 Nasal 16:00 (86) Cannula 10/31/18 3.0 09:00 Respiratory function: WNL Cardiovascular function: WNL Comments POD: 2 s/p Laparoscopic Appendectomy, patient transferred to Telemetry bed to monitor his saturation, he is doing well today, vital signs stable afebrile, pain is well controlled with IV medicine. He is sleeping at the time of visit. No respiratory distress noted, saturation 100% on 2L NC, recommended to the RN to wean him off O2 to see how he does in room air. If he maintain his saturation in room air he can be discharged home. SHELTON MATHIAS MD Oct 31, 2018 16:55
[2018-10-31] MEDS ORDERED: VITAMIN A & D 5 GM OINT PACKET TOP ONE (18:26)
[2018-11-01] VITALS (11 sets, daily range): BP systolic 107–119; BP diastolic 56–64; PULSE 64–99; RESP 16–20
[2018-11-01] MEDS: PIPER-TAZO 3.375 GM IV (PMX) 100 ML IVPB SCH ×5 (00:55→23:31)
[2018-11-01] MEDS: ALBUTEROL/IPRATROPIUM (NEB) 3 ML AMP HHN SCH ×4 (01:00→21:00)
[2018-11-01] MEDS: HYDROmorphONE 0.5 MG/0.5 ML SYG IV PRN ×4 (04:57→23:32)
[2018-11-01] MEDS: FAMOTIDINE 20 MG INJ IV SCH ×2 (07:48→21:52)
[2018-11-01] MEDS: HEPARIN 5,000 UNIT/1 ML VIAL SC SCH ×2 (08:02→22:01)
--- NOTE | 2018-11-01 15:59 | PN ---
Date/Time of Note Date/Time of Note DATE: 11/01/18 TIME: 15:55 Assessment/Plan VTE Prophylaxis Risk score (from Ns)>0 risk: 2 SCD applied (from Ns): Yes Pharmacological prophylaxis: NA/contraindicated Pharm contraindication: low risk/ambulating Lines/Catheters IV Catheter Type (from [facility]): [place] Urinary Cath still in place: No Assessment/Plan Assessment/Plan 33-year-old man coming in with acute appendicitis, status post appendectomy 10/29 # Acute appendicitis- appendectomy 10/29. - Patient with postop hypoxia which paradoxically is still present, slowly improving. - Chest x-ray yesterday did show signs of pulmonary vascular congestion versus infection, today improving. This may be post anesthesia reaction - continue diet order per surgery recommendations, pain control, IV fluids - On room air this morning # Deep venous thrombosis prophylaxis, heparin subcu. Dispo: Likely discharge in 24-48 hours Result Diagram: 11/01/18 0447 11/01/18 0447 Subjective 24 Hr Interval Summary Free Text/Dictation No acute overnight events. Patient able to ambulate down hallway on room air. But very deconditioned. Also still with moderate abdominal pain. Exam/Review of Systems Exam Vitals Vital Signs Date Temp Pulse Resp B/P (MAP) Pulse Ox O2 O2 Flow FiO2 Time Delivery Rate 11/01/18 98.3 83 16 119/64 94 15:23 (82) 11/01/18 Room Air 11:57 11/01/18 1.0 08:00 10/31/18 30 21:00 Intake and Output 10/31/18 10/31/18 11/01/18 1515:00 23:00 07:00 IntakeIntake Total 980 ml 1160 ml OutputOutput Total 800 ml BalanceBalance 980 ml 360 ml Exam PHYSICAL EXAMINATION: GENERAL: lying in bed, answering questions appropriately. HEENT: Pupils equal, round, reactive to light. Extraocular muscles intact. NECK: Supple, no thyromegaly. LUNGS: Clear to auscultation bilaterally. CARDIOVASCULAR: S1, S2 heard. No rubs or gallops. ABDOMEN: Nontender, nondistended. Incisions are clean/dry/intact Normal bowel sounds. MUSCULOSKELETAL: No lower extremity edema bilaterally. Results Results 24hrs Laboratory Tests Test 11/01/18 04:47 White Blood Count 8.8 Red Blood Count 4.38 L Hemoglobin 12.8 L Hematocrit 39.7 L Mean Corpuscular Volume 90.6 Mean Corpuscular Hemoglobin 29.2 Mean Corpuscular Hemoglobin Concent 32.2 Red Cell Distribution Width 12.6 Platelet Count 304 Mean Platelet Volume 9.2 Immature Granulocytes % 0.500 H Neutrophils % 67.8 Lymphocytes % 21.8 Monocytes % 6.8 Eosinophils % 2.5 Basophils % 0.6 Nucleated Red Blood Cells % 0.0 Immature Granulocytes # 0.040 H Neutrophils # 6.0 Lymphocytes # 1.9 Monocytes # 0.6 Eosinophils # 0.2 Basophils # 0.1 Nucleated Red Blood Cells # 0.0 Sodium Level 143 Potassium Level 4.0 Chloride Level 102 Carbon Dioxide Level 30 Anion Gap 11 Blood Urea Nitrogen 19 Creatinine 1.10 Est Glomerular Filtrat Rate mL/min > 60 Glucose Level 95 Calcium Level 9.2 Medications Medication Current Medications IV Flush (NS 3 ml) 3 ml PER PROTOCOL IV ; Start 10/29/18 at 12:00 Acetaminophen/ Hydrocodone Bitart ([place] (5/325)) 1 tab Q6H PRN PO .MOD PAIN 4- 6; Start 10/29/18 at 12:00 Morphine Sulfate (morphine) 2 mg Q4H PRN IV .SEVERE PAIN 7-10 Last administered on 10/29/18at 13:11; Admin Dose 2 MG; Start 10/29/18 at 12:00 Docusate Sodium (Colace) 100 mg Q12H PRN PO .CONSTIPATION; Start 10/29/18 at 12:00 Magnesium Hydroxide (Milk Of Mag) 30 ml DAILY PRN PO .CONSTIPATION; Start 10/29/18 at 12:00 Heparin Sodium (Porcine) (Heparin (5000 Units/1ml)) 5,000 unit Q12 SC Last ad ministered on 11/01/18at 08:02; Admin Dose 5,000 UNIT; Start 10/29/18 at 21:00 Lorazepam (Ativan) 0.5 mg Q6H PRN IV ANXIETY; Start 10/29/18 at 12:00 Albuterol/ Ipratropium (Duoneb) 3 ml Q4H RESP THERAPY PRN HHN SHORTNESS OF BREATH; Start 10/29/18 at 12:00 Piperacillin Sod/ Tazobactam Sod 100 ml @ 200 mls/hr Q6 IVPB Last administered on 11/01/18 12:42; Admin Dose 200 MLS/HR; Start 10/29/18 at 12:00 Hydralazine HCl (Apresoline) 10 mg Q6H PRN IV SBP GREATER THAN 180; Start 10/29/18 at 12:00 Nitroglycerin (Nitroglycerin (Sl Tab) 0.4 Mg) 1 tab Q5M PRN SL ANGINA; Start 10/29/18 at 12:00 Ondansetron HCl (Zofran Inj) 4 mg Q6H PRN IV NAUSEA AND/OR VOMITING; Start 10/30/18 at 00:00 Acetaminophen (Tylenol Tab) 650 mg Q6H PRN PO PAIN LEVEL 1-3 OR FEVER; Start 10/30/18 at 00:00 Ketorolac Tromethamine (Toradol) 30 mg Q6H PRN IV PAIN Last administered on 10/31/18 09:06; Admin Dose 30 MG; Start 10/30/18 at 00:00; Stop 11/02/18 at 23:59 Hydromorphone HCl (Dilaudid) 0.5 mg Q4H PRN IV PAIN LEVEL 8-10 Last administered on 11/01/18 10:35; Admin Dose 0.5 MG; Start 10/30/18 at 00:00 Famotidine (Pepcid Iv) 20 mg Q12 IV Last administered on 11/01/18 07:48; Admin Dose 20 MG; Start 10/30/18 at 09:00 Albuterol/ Ipratropium (Duoneb) 3 ml Q4H RESP THERAPY HHN Last administered on 10/31/18at 21:00; Admin Dose 3 ML; Start 10/30/18 at 17:00 DAYRON VINCENT MD Nov 01, 2018 15:59
--- NOTE | 2018-11-01 20:35 | OPPN ---
Date/Time of Note Date/Time of Note DATE: 11/01/18 TIME: 20:34 Anesthesia Follow up Anesthesia Follow up Last documented vital signs Vital Signs Date Temp Pulse Resp B/P (MAP) Pulse Ox O2 O2 Flow FiO2 Time Delivery Rate 11/01/18 97.8 99 20 107/56 92 20:04 (73) 11/01/18 2.0 18:31 11/01/18 Room Air 11:57 10/31/18 30 21:00 Respiratory function: WNL Cardiovascular function: WNL Comments POD#3 s/p Laparoscopic Appendectomy, patient transferred to Telemetry bed to monitor his saturation, he is doing well today, vital signs stable afebrile, pain is well controlled with IV medicine. No respiratory distress noted, saturation 95- 97% on room air, If he maintain his saturation in room air he can be discharged home tomorrow. SHELTON MATHIAS MD Nov 01, 2018 20:35
[2018-11-01] MEDS ORDERED: ONDANSETRON 4 MG INJ IV PRN (21:00)
[2018-11-01] MEDS ORDERED: hydrALAzine 20 MG INJ IV PRN (21:00)
[2018-11-01] MEDS ORDERED: METOCLOPRAMIDE 10 MG INJ IV PRN (21:00)
[2018-11-01] MEDS ORDERED: LABETALOL HCL 20MG INJ IV PRN (21:00)
[2018-11-01] MEDS ORDERED: FENTAnyl 50 MCG/ML VIAL IV PRN ×3 (21:00)
[2018-11-01] MEDS ORDERED: EPHEDrine SULFATE 50 MG/5 ML SYG IV PRN (21:00)
[2018-11-01] MEDS ORDERED: HYDROmorphONE 1 MG/5 ML IV SYRINGE IV PRN ×3 (21:00)
[2018-11-02] VITALS (8 sets, daily range): BP systolic 100–116; BP diastolic 55–64; PULSE 71–87; RESP 18–20
[2018-11-02] MEDS: ALBUTEROL/IPRATROPIUM (NEB) 3 ML AMP HHN SCH ×2 (01:00→05:00)
[2018-11-02] MEDS: HYDROmorphONE 0.5 MG/0.5 ML SYG IV PRN (05:47)
[2018-11-02] MEDS: PIPER-TAZO 3.375 GM IV (PMX) 100 ML IVPB SCH ×2 (05:47→11:20)
[2018-11-02] MEDS: FAMOTIDINE 20 MG INJ IV SCH (09:13)
[2018-11-02] MEDS: HEPARIN 5,000 UNIT/1 ML VIAL SC SCH (09:24)
--- NOTE | 2018-11-02 11:51 | PDOCDIS ---
Discharge Instructions DIAGNOSIS Discharge Diagnosis Acute appendicitis CONDITION [id number] Patient Condition: [id number] Good HOME CARE INSTRUCTIONS: [id number] Diet Instructions: [id number] Regular ACTIVITY: [id number] Activity Restrictions: [id number] No Restrictions FOLLOW UP/APPOINTMENTS Follow-up Plan 1. Keep your surgical incisions clean. No baths, swimming pools, or other prolonged immersion in water. Showers are okay, pat the incisions dry afterwards. 2. For abdominal or incisional pain take ibuprofen or tylenol. If pain is much more severe return to the emergency room. 3. Make an appointment with Dr. Titus Cook in 2 weeks. Address: [address] [place] [address] [id number], [place] [address] 4. No heavy lifting more than 20 lbs until [address] Cook says otherwise. DAYRON VINCENT MD Nov 02, 2018 11:51
--- NOTE | 2018-11-02 15:16 | DS ---
Date/Time of Note Date/Time of Note DATE: 11/02/18 TIME: 15:12 Discharge Summary Admission/Discharge Info Admit Date/Time Oct 29, 2018 at 07:02 Discharge Date/Time Nov 02, 2018 at 13:15 Discharge Diagnosis Acute appendicitis Patient Condition: Good Consults Dr. Cook general surgery Procedures laproscopic appendectomy (10/29/18) Hx of Present Illness HISTORY OF PRESENT ILLNESS: A 33-year-old male with no significant past medical history who has been having abdominal pain. The symptoms began yesterday. He noticed bloating type of pain. Never had this before. It started in the umbilical area about 7 to 8/10 in intensity and radiated to the right lower quadrant. He had some subjective had some chills, some mild nausea but no vomiting, no fevers, no diarrhea or constipation. He took some Tums to help r elieve the symptoms, but he did not get any relief. He decided to come to the ER. When he came in, he had a CT abdomen and pelvis performed today that showed signs of acute appendicitis with a dilated, 15 mm appendix and appendicolith. No A superficial location in the right lower quadrant of the abdomen and pelvis immediately subadjacent to the right rectus musculature and fascia. There is also mild periappendiceal inflammation and a call was made out to the surgeon to come see the patient. The patient is presently n.p.o. PAST MEDICAL HISTORY: As stated above. ALLERGIES: NO DRUG ALLERGIES. MEDICATIONS AT HOME: None. PAST SURGICAL HISTORY: None. Hospital Course The patient was taken the evening of 10/29 for laproscopic appendectomy. Postoperatively he developed SOB and hypoxia. CXR showed diffuse pulmonary edema. He was admitted to the ICU on nasal cannula. Preoperative zosyn was continued empirically. Postop day 3 he was ambulating around the hallway off oxygen and he remained off oxygen the rest of admission. Repeat CXR showed resolution of edema. Patient was tolerating diet, pain well controlled off opioids, ambulating on room air. I suspect this postoperative pulmonary edema was a transient anaesthesia effect; he is physically fit and denies history of heart failure symptoms. Home Meds No Active Prescriptions or Reported Meds Follow-up Plan 1. Keep your surgical incisions clean. No baths, swimming pools, or other prolonged immersion in water. Showers are okay, pat the incisions dry afterwards. 2. For abdominal or incisional pain take ibuprofen or tylenol. If pain is much more severe return to the emergency room. 3. Make an appointment with Dr. Titus Cook in 2 weeks. Address: [address] [place] [address] [id number], [place] [id number] 4. No heavy lifting more than 20 lbs until ThursdayNovember [address] Cook says otherwise. Primary Care Provider Care Physician No Primary Time spent on discharge: > 30 minutes Pending Labs Laboratory Tests Test 11/02/18 05:14 White Blood Count 7.9 10^3/ul (4.8-10.8) Red Blood Count 4.56 10^6/ul (4.70-6.10) Hemoglobin 13.2 g/dl (14.0-18.0) Hematocrit 40.4 % (42.0-52.0) Mean Corpuscular Volume 88.6 fl (82.0-101.0) Mean Corpuscular Hemoglobin 28.9 pg (29.0-33.0) Mean Corpuscular Hemoglobin Concent 32.7 g/dl (32.0-37.0) Red Cell Distribution Width 12.2 % (11.5-14.5) Platelet Count 300 10^3/UL (140-415) Mean Platelet Volume 9.1 fl (7.4-10.4) Immature Granulocytes % 1.100 % (0.001-0.429) Neutrophils % 56.9 % (39.0-77.0) Lymphocytes % 26.3 % (15.0-51.0) Monocytes % 8.5 % (0.0-11.0) Eosinophils % 6.7 % (0.0-7.0) Basophils % 0.5 % (0.0-2.0) Nucleated Red Blood Cells % 0.0 /100WBC (0.0-0.0) Immature Granulocytes # 0.090 10^3/ul (0.0-0.031) Neutrophils # 4.5 10^3/ul (1.6-7.5) Lymphocytes # 2.1 10^3/ul (0.8-2.9) Monocytes # 0.7 10^3/ul (0.3-0.9) Eosinophils # 0.5 10^3/ul (0.0-0.5) Basophils # 0.0 10^3/ul (0.0-0.1) Nucleated Red Blood Cells # 0.0 10^3/ul (0.0-0.0) Sodium Level 142 mmol/L (135-144) Potassium Level 4.0 mmol/L (3.5-5.1) Chloride Level 105 mmol/L (97-110) Carbon Dioxide Level 28 mmol/L (21-31) Anion Gap 9 (5-13) Blood Urea Nitrogen 12 mg/dl (7-20) Creatinine 0.86 mg/dl (0.61-1.24) Est Glomerular Filtrat Rate mL/min > 60 mL/min (>60) Glucose Level 87 mg/dl (70-220) Calcium Level 9.5 mg/dl (8.4-10.2) DAYRON VINCENT MD Nov 02, 2018 15:16
== END 2018-11-02 13:15 | disposition home or self-care (01) | DRG 343 ==
LOC: FTE 02:59 → MS1 07:02 → ICU 10-30 02:09 → 2NE 10-30 11:42 → 6WM 10-30 16:58
PROVIDERS: ADMIT Internal Medicine; ATTEND Internal Medicine
PROC: 0DTJ4ZZ Resection of Appendix, Percutaneous Endoscopic Approach (ICD-10-PCS; principal; 2018-10-29 14:00)
DX: K35.80 Unspecified acute appendicitis (principal); R09.02 Hypoxemia; J70.2 Acute drug-induced interstitial lung disorders; T41.295A Adverse effect of other general anesthetics, initial encounter; Y92.234 Operating room of hospital as the place of occurrence of the external cause
CPT/HCPCS: 36415; 71045; 74176; 80048; 80053; 80061; 81003; 83036; 83690; 83735; 84100; 84439; 84443; 85025; 85610; 85730; 87081; 88304; 94640; 94664; 96361; 96374; 96375; J0690; J1100; J1170; J1644; J1885; J1940; J2250; J2270; J2310; J2405; J2543; J2710; J2765; J2795; J3010; J3475; J3480; J7030